=== PATIENT | male | born 1990 | race Caucasian/White ===

== ENCOUNTER 2022-10-26 13:10 | Emergency (ER) | payer BC, SELFPAY ==
[2022-10-26 13:17] VITALS: BP 134/79; PULSE 92; RESP 18; TEMP 36.4; O2SAT 98
--- NOTE | 2022-10-26 13:58 | ED.GENADULT ---
HPI - General Adult General Chief complaint: Wound/Laceration Stated complaint: L thumb injury Time Seen by Provider: 10/26/22 13:27 History of Present Illness HPI narrative: 32-year-old male present emergency department for evaluation of a laceration to his left thumb. Patient states he was attempting to strip some wires and cut his thumb with a knife. Patient is unsure of his tetanus is up-to-date. Patient denies any associate numbness or weakness. Patient denies any other pain or injury. Related Data Allergies Allergy/AdvReac Type Severity Reaction Status Date / Time diphenhydramine Allergy Swelling Verified 10/26/22 13:26 [From Benadryl] of Lip/Tongue/Throat Review of Systems Review of Systems: All systems reviewed & are unremarkable except as noted in HPI and below Exam Narrative: APPEARANCE: Well appearing, no pain, no distress, well-nourished. HEAD: normocephalic, atraumatic. EYES: PERRLA/EOMI, conjunctivae clear. NOSE: Normal no drainage EARS:TMS clear with good light reflex. THROAT: Pharynx clear, no exudate. NECK: Supple. No adenopathy, no masses. RESPIRATORY: Airway patent, respirations nonlabored. Clear to auscultation bilaterally, no rales, rhonchi, wheezing. CARDIOVASCULAR: Regular rate and rhythm without murmurs rubs or gallops. ABDOMINAL: Soft, nontender, nondistended, normal bowel sounds MUSCULOSKELETAL: Moves all extremities. Strength/ROM intact, No edema, No calf tenderness. NEURO: Alert. Cranial nerves II through XII intact. Good gait. Good coordination SKIN: Dorsal aspect of proximal thumb Wound was explored and patient has no numbness weakness and no Course Course Emergency Course: 32-year-old male presented to the ED for evaluation after having a thumb laceration. Laceration was repaired as described in the procedure note. Patient's tetanus was updated. Patient and family were updated on the plan for wound care and follow-up Vital Signs Vital signs: Vital Signs Temperature 97.6 F 10/26/22 13:17 Pulse Rate 92 10/26/22 13:17 Respiratory Rate 18 10/26/22 13:17 Blood Pressure 134/79 10/26/22 13:17 Pulse Oximetry 98 10/26/22 13:17 Oxygen Delivery Room Air 10/26/22 13:17 Temperature 97.6 F 10/26/22 13:17 Pulse Rate 92 10/26/22 13:17 Respiratory Rate 18 10/26/22 13:17 Blood Pressure 134/79 10/26/22 13:17 Pulse Oximetry 98 10/26/22 13:17 Oxygen Delivery Room Air 10/26/22 13:17 Procedures Laceration Laceration 1: Date: 10/26/22 Time: 13:59 Site: upper extremity and hand Side (If applicable): left Size (cm): 3 Description: linear Depth: simple, single layer Local Anesthetic: lidocaine 1% Amount of anesthesia used (mL): 2 ====== Skin Level ====== Skin layer closed with: prolene Size (cm): 4-0 Number of sutures: 3 Technique: simple, interrupted ====== Subcutaneous Layer ====== ====== Muscle Layer ====== ====== Tendon Layer ====== Medical Decision Making Vital Signs Vital Signs: Vital Signs Temperature 97.6 F 10/26/22 13:17 Pulse Rate 92 10/26/22 13:17 Respiratory Rate 18 10/26/22 13:17 Blood Pressure 134/79 10/26/22 13:17 Pulse Oximetry 98 10/26/22 13:17 Oxygen Delivery Room Air 10/26/22 13:17 Temperature 97.6 F 10/26/22 13:17 Pulse Rate 92 10/26/22 13:17 Respiratory Rate 18 10/26/22 13:17 Blood Pressure 134/79 10/26/22 13:17 Pulse Oximetry 98 10/26/22 13:17 Oxygen Delivery Room Air 10/26/22 13:17 Discharge Plan Discharge Clinical Impression: Laceration Patient Disposition: Home, Self-Care Condition: Stable Instructions: Antibiotic Form, Laceration (ED) Additional Instructions: Sutures will need to be removed in 7 to 10 days. Wound care as directed. Have close follow-up with your primary care physician. If you have any worsening symptoms then pl
[2022-10-26] MEDS: TETANUS,DIPHTHERIA,AC PERTUSSIS ADULT (0.5 ML) BOOSTRIX IM (14:08)
== END 2022-10-26 14:10 | disposition home or self-care (01) ==
PROVIDERS: Emergency Provider Emergency Medicine
DX: S61.012A Laceration without foreign body of left thumb without damage to nail, initial encounter (principal); W26.0XXA Contact with knife, initial encounter; Z23 Encounter for immunization
CPT/HCPCS: 12002; 90471; 90715; 99282

== ENCOUNTER 2025-01-31 18:40 | Emergency (ER) | payer BC, SELFPAY ==
--- OUTSIDE RECORDS SUMMARY | 2025-01-31 18:42 | XMS_ITS | Clinical Summary ---
Author Organization [facility] Address [address] [place] [address] Care Team Providers Care Mechanical Facilities Technician Name Role Phone Dolly Camargo NP Primary Care Provider [phone] Allergies Active Allergy Reactions Criticality Noted Date Comments Diphenhydramine Hives,Swelling Medium (Benadryl) Medications colchicine (COLCRYS) 0.6 mg tabletIndications: acute gouty arthritis Take one tablet by mouth every 2 hours for 3 doses then twice daily for 3-5 days. Hold for diarrhea. 60 tablet 08/24/19 24 Active Additional Information Patient not taking.Reported on 05/31/2024 ondansetron ODT (ZOFRAN-ODT) 4 mg disintegrating tabletIndications: Nausea and vomiting, unspecified vomiting type Take 1 tablet (4 mg total) by mouth every 6 (six) hours as needed for nausea or vomiting 10 tablet 05/31/19 25 Active Active Problems Problem Noted Date Diagnosed Date Chronic suppurative otitis media of left ear Assessment & Plan (08/24/2023 11:05 AM CDT): No infection today, chronic scarring with opacification of anterior corner of left upper TM. Referral to ENT group and [facility]. He has not heard from previous referral to [facility]. S/P ACL reconstruction 01/07/2022 Annual physical exam 04/17/2021 Assessment & Plan (05/08/2023 8:05 PM CONCIERGE RECEPTIONIST): -Recommended: Healthy diet. Avoiding junk food/fast food. -30 minutes of exercise most days of the week. Increase to 45 minutes for weight loss. Immunizations: Up to date lose weight, increase physical activity, routine labs ordered, call if any problems Follow-up in 1 year. Assessment & Plan (04/17/2021 3:43 PM CONCIERGE RECEPTIONIST): Fasting labs entered, will notify patient of results as available Horseshoe kidney 11/17/2020 Smokeless tobacco use 10/14/2020 Assessment & Plan (10/14/2020 10:25 AM CDT): Advised cutting back on and quitting smokeless tobacco Chronic gout without tophus 10/14/2020 Assessment & Plan (08/24/2023 11:06 AM CDT): Renew colchicine Assessment & Plan (05/08/2023 8:05 PM CONCIERGE RECEPTIONIST): Will call/ come in if he has any flare-ups. Assessment & Plan (04/17/2021 3:43 PM CONCIERGE RECEPTIONIST): Upon further discussion he is not taking his allopurinol routinely. He will resume a daily dosing. He will be given a mdp and prn norco to use through the weekend. He was reminded to not drive for 6h after taking norco as it may make him drowsy. He was also reminded of addictive potential of this medication and that only a short term prescription would be provided. Assessment & Plan (11/17/2020 11:01 AM CDT): He will continue to work on diet with decreased processed foods Will repeat uric acid level today, will notify of results as available Assessment & Plan (10/14/2020 10:26 AM CDT): Will evaluate further with uric acid level We discussed decreasing processed meats, alcohol in diet We discussed adding allopurinol if having frequent flare ups of gout. Complete tear of right ACL, subsequent encounter 12/24/2019 Overview (12/24/2019): Added automatically from request for surgery [id number] Obstructive sleep apnea syndrome 07/31/2014 Assessment & Plan (10/14/2020 10:24 AM CDT): Continue with cpap [facility] Resolved Problems Problem Noted Date Diagnosed Date Resolved Date ACL graft tear, subsequent encounter 01/14/2022 05/05/2023 Knee instability, left 01/14/202205/05 Injury of left knee 01/07/2022 05/05/19 Acute pain of left knee 01/07/2022 02/04/2023 Effusion of left knee 01/07/20222023 Obesity, Class I, BMI 30-34.9 04/17/2021 05/05/2023 Assessment & Plan (04/17/2021 3:42 PM CONCIERGE RECEPTIONIST): Obesity is unchanged. Discussed the patient's BMI. The BMI is above average. BMI management plan is completed. BMI Follow-up includes: nutrition counseling, exercise counseling and education provided. BMI 34.0-34.9,adult 11/17/2020 05/05/19 24 Assessment & Plan (04/17/2021 3:42 PM CONCIERGE RECEPTIONIST): Obesity is unchanged. Discussed the patient's BMI. The BMI is above average. BMI management plan is completed. BMI Follow-up includes: nutrition counseling, exercise counseling and education provided. Assessment & Plan (11/17/2020 8:33 AM CDT): Obesity is unchanged. Discussed the patient's BMI. The BMI is above average. BMI management plan is completed. BMI Follow-up includes: nutrition counseling, exercise counseling and education provided. Wrist pain, left 11/17/2020 05/05/2023 Assessment & Plan (11/17/2020 11:02 AM CDT): Xray left wrist, will notify of results as available. Will refer to ortho for further evaluation and treatment. Ganglion cyst 11/17/2020 05/05/2023 Assessment & Plan (11/17/2020 11:01 AM CDT): Will refer to ortho for further evaluation and treatment Obesity (BMI 30-39.9) 10/14/20202023 Assessment & Plan (11/17/2020 8:33 AM CDT): Obesity is unchanged. Discussed the patient's BMI. The BMI is above average. BMI management plan is completed. BMI Follow-up includes: nutrition counseling, exercise counseling and education provided. Assessment & Plan (10/14/2020 9:49 AM CDT): Obesity is unchanged. Discussed the patient's BMI. The BMI is above average. BMI management plan is completed. BMI Follow-up includes: nutrition counseling, exercise counseling and education provided. Encounter to establish care 10/14/2020 04/17/2021 Injury of right knee 12/20/2019 024 Acute pain of right knee 12/20/201904/2023 Rupture of anterior cruciate ligament of right knee 12/20/2019 05/05/2023 Effusion of right knee 12/20/201905/05 Peripheral tear of medial me niscus of right knee as current injury 12/20/2019 05/05/2023 Obesity 07/17/2014 10/14/2020 PVC's (premature ventricular contractions) 11/07/2013 05/05/2023 Assessment & Plan (10/14/2020 10:25 AM CDT): Will evaluate further with labs Retrieve stress test for review He was advised consult with cardiology and declines at this time Advised cutting back on and quitting caffeine and smokeless tobacco Chest pain 09/11/2013 05/05/2023 Obesity with body mass index 30 or greater 09/11/2013 11/17/2020 Assessment & Plan (10/14/2020 9:49 AM CDT): Obesity is unchanged. Discussed the patient's BMI. The BMI is above average. BMI management plan is completed. BMI Follow-up includes: nutrition counseling, exercise counseling and education provided. Palpitations 09/11/2013 05/05/2023 Encounters Date Type Department Care Team Description 01/31/[address] [facility] Primary Care at [address] [address] Dolly Camargo NP Symptom Based Call from Last 3 Months Immunizations Immunization Administration Dates Next Due Flucelvax Influenza Quad 01/12/2019 Influenza, Unspecified 05/05/2023(Deferr ed: Patient Refused),04/04/2022(Deferred: Patient Refused),01/03/2020(Deferred: Patient Refused) Tdap 01/24/2019 Surgical History Surgery Date Site/Laterality Comments ANTERIOR CRUCIATE LIGAMENT REPAIR 04/04/2006 - 04/03/2007 Left metal screw WRIST SURGERY 04/04/2006 - 04/03/2007 Left cyst NECK SURGERY 04/04/2016 - 04/03/2017 C5-6 & C6-7, artificial disc FINGER SURGERY Right right ring finger tip repair- 2 surgeries MYRINGOTOMY W/ TUBES as a child EAR SURGERY repair following myringotomy tubes- as a child FLUORO GUIDED INJECTION ANKLE RIGHT 01/02/2020 Right VASECTOMY 04/04/2020 - 05/04/2020 ANTERIOR CRUCIATE LIGAMENT REPAIR 04/04/2019 - 04/03/2020 Right Medical History Medical History Date Comments Arrhythmia Gout 01/02/2020 last 10/2021 left wrist and right foot- back at baseline Horseshoe kidney Sleep apnea has CPAP Ankle pain, right twisted ankle in shower--now slightly painful and swollen Family History Medical History Relation Name Comments Gout Father Lymphoma Maternal Grandfather Family history of lymphoma - (Added by TW Conv) Anesthesia problems Neg Hx Relation Name Status Comments Father Alive Maternal Grandfather Mother Alive Social History Tobacco Use Types Packs/Day Years Used Date Smoking Tobacco: Never Smokeless Tobacco: Current Chew Alcohol Use Standard Drinks/Week Comments Yes 0 (1 standard drink = 0.6 oz pur e alcohol) once every couple months AUDIT-C Answer Date Recorded Q1: How often do you have a drink containing alc ohol? Monthly or less 01/20/2022 Q2: How many drinks containi ng alcohol do you have on a typical day when you are drinking? 1 or 2 01/20/2022 Q3: How often do you have si x or more drinks on one occasion? 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 Not on file Not on file Not on file Obstetrics History Last Filed Vital Signs Vital Sign Reading Time Taken Comments Blood Pressure 118/74 05/31/2024 2:59 PM CONCIERGE RECEPTIONIST Pulse 77 05/31/2024 2:59 PM CONCIERGE RECEPTIONIST Temperature 36.8 C (98.3 F) 05/31/2024 2:59 PM CONCIERGE RECEPTIONIST Respiratory Rate 20 05/31/2024 2:59 PM CONCIERGE RECEPTIONIST Oxygen Saturation 97% 05/31/2024 2:59 PM CONCIERGE RECEPTIONIST Inhaled Oxygen Concentration - - Weight 86.2 kg (190 lb) 05/31/2024 2:59 PM CONCIERGE RECEPTIONIST Height 157.5 cm (5' 2.01) 10/05/2023 5:24 PM CD T Body Mass Index 34.74 10/05/2023 5:24 PM CDT Plan of Treatment Health Maintenance Due Date Last Done Comments Hepatitis C Screening 1991 Hepatitis B Screening 2009 HPV Vaccines (1 - 3-dose SCDM series) 2018 Regular Well Visit/Exam 18-64 05/05/2024 05/05/2023, 04/17/2021 Depression Screening 08/23/2024 08/24/2023, 08/10/2023, 05/05/2023, Additional history exists Covid-19 Vaccine ( season) 2024 12/17/2020, 11/26/2020 DTaP/Tdap/Td Vaccine (2 - Td or Tdap) 01/24/2029 01/24/2019 Influenza Vaccine Discontinued 01/12/2019 Pneumococcal vaccine <65 Aged Out No longer eligible based on patient's age to complete this topic Varicella Vaccines Discontinued Medical Devices Implanted Type Area Moss Gatherer Device Identifier Shelf Expiration Date Model / Serial / Lot Titanium Left: Knee [employer] Ar-4020c-07 Screw Fastthread Biocomposite Interference 7mm X 20mm - [id number] Implanted:Qty: 1 on 01/02/2020 by Brian Muller IV, MD at [facility] Right: Knee [employer] [id number] 09/02/2023 AR-4020C-0 7 / / [id number] [employer] Ar-4020c-09 Screw Fastthread Biocomposite Interference 9mm X 20mm - [id number] Implanted:Qty: 1 on 01/02/2020 by Brian Muller IV, MD at [facility] Right: Knee [employer] 09/02/2023 AR-4020C-0 9 / / [id number] [employer] Screw Fastthread Biocomposite Interference 9mm X 20mm Ar-4020c-09 - [id number] Implanted:Qty: 1 on 02/05/2022 by Brian Muller IV, MD at [facility] Left: Knee [employer] 09/01/2025 AR-4020C-0 9 / / [id number] [employer] Screw Fastthread Biocomposite Interference 10mm X 20mm Ar-4020c-10 - [id number] Implanted:Qty: 1 on 02/05/2022 by Brian Muller IV, MD at [facility] Left: Knee [employer] 07/02/2025 AR-4020C-1 0 / / [id number] [employer] Swivelock C 4.75mm 19.1mm Closed Eyelet Vent Sanders Suture Ar-2324bcc - [id number] Implanted:Qty: 1 on 02/05/2022 by Brian Muller IV, MD at [facility] Left: Knee [employer] 12/02/2025 AR-[id number] / / [id number] Insurance IDPA IDPA Advance Directives For more information, please contact: [phone] * Full Code (Latest Code Status on File) Date Activated Date Inactivated Comments 02/05/2022 12:16 PM 02/05/2022 5:42 PM * Full Code Date Activated Date Inactivated Comments 01/02/2020 5:16 PM 01/02/2020 10:57 PM Care Teams Mechanical Facilities Technician Relationship Specialty Start Date End Date Dolly Camargo NP PCP - General Family Medicine 05/05/23
--- NOTE | 2025-01-31 18:45 | ED.EXTPRO ---
HPI - Extremity Problem General Chief complaint: Extremity Injury, Lower Stated complaint: RT Foot Pain Time Seen by Provider: 01/31/25 18:45 Source: patient Mode of arrival: ambulatory Limitations: no limitations History of Present Illness HPI Narrative: 35 yo M presents with R ankle pain for 3 to 4 days. States typical gout flare. gets gout several times a year. has been prescribed allupurinol in the past but doesn't like taking medications. All systems reviewed and negative except as noted above. Related Data Allergies Allergy/AdvReac Type Severity Reaction Status Date / Time diphenhydramine (From Allergy Swelling Verified 01/31/25 18:48 Benadryl) of Lip/Tongue/Throat PMFSH Comments At time of signature, agree with nursing past medical, surgical, social and family history. There is no relevant family history pertinent to the presenting complaint. Exam Narrative: GENERAL: This is a well-nourished, well-developed patient, in no apparent distress. HEAD: normocephalic, atraumatic. EYES: PERRL. Sclera clear/white. Vision is grossly intact. EARS: External ears normal NOSE: External nose normal NECK: Neck supple, non-tender without lymphadenopathy, masses or thyromegaly. CARDIOVASCULAR: Regular rate and rhythm without murmurs, gallops, or rubs. RESPIRATORY: Clear to auscultation. Breath sounds equal bilaterally. No wheezes, rales, or rhonchi. SKIN: warm, Dry, intact with no suspicious lesions or rash, good texture and turgor. NEURO: awake, alert, and oriented to person, place and time. There were no obvious focal neurologic abnormalities. EXTREMITIES: Swelling to left ankle. Tenderness to medial aspect with erythema and warmth. Course Course Level of Care: Express Care Visit Vital Signs Vital signs: Vital Signs Temperature 36.2 C L 01/31/25 18:48 Pulse Rate 81 01/31/25 18:48 Respiratory Rate 18 01/31/25 18:48 Blood Pressure 106/64 01/31/25 18:48 Pulse Oximetry 99 01/31/25 18:48 Oxygen Delivery Room Air 01/31/25 18:48 Temperature 36.2 C L 01/31/25 18:48 Pulse Rate 81 01/31/25 18:48 Respiratory Rate 18 01/31/25 18:48 Blood Pressure 106/64 01/31/25 18:48 Pulse Oximetry 99 01/31/25 18:48 Oxygen Delivery Room Air 01/31/25 18:48 Reviewed MDM - Extremity (Nontraumatic) MDM Narrative Medical decision making narrative: patient reports that he has taken colchicine and prednisone in the past for gout flares. Currently does not have a medical insurance, was not able to get in with his primary care physician. Patient is well-appearing, nontoxic. Discharge Plan Discharge Clinical Impression: Gout Qualifiers: Gout site: ankle Gout etiology: unspecified cause Chronicity: acute Laterality: right Qualified Code(s): M10.9 - Gout, unspecified Patient Disposition: Home Condition: Stable Instructions: Gout (ED) Additional Instructions: Take medications as prescribed to treat gout flare. Follow-up with your primary care physician at next available appointment. Patient Language: Kuwaiti Prescriptions: New methylprednisolone [Medrol (Ozzie)] 4 mg tablets,dose pack See Rx Instructions PO .COMPLEX Qty: 21 0RF Rx Instructions: orally per package directions colchicine 0.6 mg capsule 0.6 mg PO DIRECTED Qty: 3 0RF Rx Instructions: Take 2 tablets and then 1 hour later take 1 tablet. diclofenac potassium 50 mg tablet 50 mg PO TID 10 Days Qty: 30 0RF Follow-up/Referrals: PHYSICIAN,HEALTH EDUCATION AIDE [Primary Care Provider, Internal Medicine] Time of Disposition: 18:55
[2025-01-31 18:48] VITALS: BP 106/64; PULSE 81; RESP 18; TEMP 36.2; O2SAT 99
== END 2025-01-31 19:02 | disposition home or self-care (01) ==
PROVIDERS: Emergency Provider Nurse Practitioner Family
DX: M10.9 Gout, unspecified (principal); Q63.1 Lobulated, fused and horseshoe kidney
CPT/HCPCS: 99213; G0463